=== PATIENT | female | born 1950 | race Caucasian/White ===

== ENCOUNTER 2018-11-04 08:09 | Emergency (ER) | payer MEDICARE, MEDICAID ==
--- NOTE | 2018-11-04 08:55 | RAD ---
Frontal and lateral views of the right tibia/fibula. Indication: fall yesterday with bruising Comparison: None. Impression: Soft tissue swelling throughout the right lower leg and most pronounced superomedially at the anterior aspect. No acute fracture of the tibia identified. Questionable cortical step-off versus spur lateral margin fibular head. Correlation with point tenderness versus cross-sectional imaging recommended. Electronically signed by: Jonah Negrete MD 11/04/2018 8:54 AM CDT
--- NOTE | 2018-11-04 08:57 | RAD ---
Study: Single Frontal Radiograph of the Chest. Indication:ams Comparison: None. Impression: Tracheostomy tube terminates approximately 10 cm above the sage. Left PICC line tip terminates at the distal SVC. Mild cardiomegaly. Patchy basilar opacities which could reflect pneumonia, atelectasis, or scarring. Tiny left pleural effusion suspected. No pneumothorax. No acute osseous abnormality. Electronically signed by: Jonah Negrete MD 11/04/2018 8:55 AM CDT
[2018-11-04] MEDS ORDERED: IPRATROPIUM/ALBUTEROL 3 ML VIAL NEB ONE (10:41)
[2018-11-04] MEDS ORDERED: AMOXICILLIN & POT CLAVULANATE 875 MG TAB GT ONE (10:41)
--- NOTE | 2018-11-04 11:19 | ED.PDOC ---
History of Present Illness - General Chief Complaint: Neuro Symptoms/Deficits Stated Complaint: decreased LOC Time Seen by Provider: 11/04/18 08:16 Source: patient Exam Limitations: no limitations - History of Present Illness Initial Comments: the patient is a 68-year-old female presenting to the emergency room secondary to staph that her long-term care ventilator facility having difficulty arousing her this morning. The patient does take numerous surgery the medications. No fevers. No respiratory symptoms. She has pain in her right lower extremity from a fall yesterday. She does have 2 large hematomas to the right lower extremity from the fall. She also has pain over the fibular head. No gross bony deformity otherwise. The patient is arousable to voice but she is sleepy. The patient has a slight lerma discoloration to her upper body that I'm told it is not a new issue. She has a PICC line to the left upper extremity. Timing/Duration: 4-6 hours Severity: mild Improving Factors: nothing Worsening Factors: nothing Associated Symptoms: denies symptoms Allergies/Adverse Reactions: Allergies Levofloxacin [From Levaquin] Allergy (Verified 11/04/18 08:51) Home Medications: Ambulatory Orders Acetaminophen [Acetaminophen ER] 650 mg PO Q4H PRN 11/04/18 Amoxicillin & Pot Clavulanate [Augmentin Tab] 875 mg PO BID #14 tab 11/04/18 Aspirin [Gamaliel Low Dose] 81 mg PO DAILY 11/04/18 Budesonide (Inhalation) [Budesonide] 0.5 mg IN BID 11/04/18 Buspirone HCl 30 mg PO BID 11/04/18 Diltiazem HCl 60 mg PO QID 11/04/18 Enoxaparin Sodium [Lovenox] 40 mg SUBCU QD 11/04/18 Famotidine 20 mg PO BID 11/04/18 Furosemide 40 mg PO DAILY 11/04/18 Guar Gum [Nutrisource Fiber] 1 barrett PEG BID 11/04/18 Haloperidol 2 mg PO TID 11/04/18 Ipratropium-Albuterol [Ipratropium [place]/Albut] 1 sharon IN Q2H PRN 11/04/18 Lorazepam [Ativan] 1 mg PO Q6H PRN 11/04/18 Ondansetron HCl [Zofran] 4 mg PO Q4H PRN 11/04/18 Polyethylene Glycol 3350 [Miralax] 17 gm PO DAILY 11/04/18 Potassium Chloride [Potassium Chloride ER] 40 meq PO DAILY 11/04/18 Tramadol HCl 50 mg PO Q8H PRN 11/04/18 Review of Systems - Review of Systems Constitutional: States: malaise EENTM: States: no symptoms reported Respiratory: States: no symptoms reported Cardiology: States: no symptoms reported Gastrointestinal/Abdominal: States: no symptoms reported Genitourinary: States: no symptoms reported Musculoskeletal: States: see HPI Skin: States: see HPI Neurological: States: see HPI Endocrine: States: no symptoms reported Hematologic/Lymphatic: States: no symptoms reported All other Systems: No Change from Baseline Past Medical History (General) - Patient Medical History Hx Stroke: No Hx of COPD: Yes Hx Cardiac Disorders: Yes - Atrial fib Hx Congestive Heart Failure: Yes Hx Hypertension: Yes Hx Diabetes: No - Vaccination History Hx Influenza Vaccination: - unknown Hx Pneumococcal Vaccination: - unknown - Activities of Daily Living Custodial/Assisted Living (if applicable):: [facility] Family Medical History - Family History Mother Family History: Unknown Living Status: Unknown Physical Exam - Physical Exam General Appearance: Alert, No apparent distress, Other - drowsy Eye Exam: bilateral normal Ears, Nose, Throat: hearing grossly normal, normal ENT inspection Neck: full range of motion, supple Respiratory: other - no respiratory distress. She is on a ventilator. She does have mild bibasilar rales. Mild scattered wheezes. Cardiovascular/Chest: normal peripheral pulses, regular rate, rhythm, no edema Peripheral Pulses: radial,right: 2+, radial,left: 2+, dorsalis pedis,right: 2+, dorsalis pedis,left: 2+ Gastrointestinal/Abdominal: non tender, soft, other - obese. G-tube is in place. Rectal Exam: deferred Extremity: normal range of motion, pedal edema - trace, other - 2 large hematomas to the right lower extremity. Tenderness to palpation over the fibular head. Neurologic: county auditor II-XII nml as tested - tracheostomy is in place., alert - he patient is sleepy but arousable to voice and appropriate., normal mood/affect - flat affect, oriented x 3, other - she does move all extremities but does have some significant weakness. Skin Exam: other - bruising to the right lower extremity. Hematology the right lower extremity. Slate lerma discoloration to her upper torso which is apparently not new. Comments: Vital Signs - 24 hr 11/04/18 11/04/18 11/04/18 08:41 09:00 09:03 Temperature 96.5 F L Pulse Rate Pulse Rate [ 83 72 Right Brachial] Respiratory 18 18 Rate Respiratory 18 Rate [Volume Control Data] Blood Pressure 106/65 [Right Arm] O2 Sat by Pulse 96 94 L Oximetry 11/04/18 11/04/18 11/04/18 09:31 10:00 11:07 Temperature Pulse Rate 81 Pulse Rate [ 75 77 Right Brachial] Respiratory 18 18 18 Rate Respiratory 18 Rate [Volume Control Data] Blood Pressure 110/79 127/89 [Right Arm] O2 Sat by Pulse 100 100 100 Oximetry Progress - Progress Progress: 11/04/18 11:24 the patient is a 68-year-old female presenting to the emergency room from a long-term care facility secondary to significant difficulty with arousing the patient this morning. She is still a little bit sleepy but is easily rousable to voice currently. The patient does take several sedating-type medications. I would encourage minimizing Ativan and if the drowsiness continues reducing Haldol dose to 1 mg 3 times daily. Additionally the patient does have some CO2 retention as evidenced by the ABG here. Her respiratory rate has been increased to 20 and her FiO2 has been decreased to 35%. The CO2 retention may be contributing to the drowsiness as well. The patient does have small infiltrates versus atelectasis on the chest x-ray. I'm uncertain if she has beginnings of a small pneumonia. White blood cell count is 11,000 with a slight left shift. I'm going to place the patient on Augmentin for 7 days. I would recommend leaving the PICC line in place in case the patient fails to respond or worsens over the coming days. Additionally the patient does appear to have a small crack in the fibular head on the right from the fall yesterday. She does need to use a wheelchair at least for the next few weeks to avoid weightbearing to allow this to start to heal. She does have significant bruising to the lower extremity which is consistent with the Lovenox use. I don't see any overt evidence of infection at the site at this time. The bruising is expected given the blood thinner. Hemoglobin and hematocrit are stable. No evidence of any other fracture on the x-ray of the tib-fib. there is a small amount of hematuria on the urinalysis. This is not surprising given the Lovenox use and the indwelling catheter. The patient will be allowed to go back to long-term care facility. She does need to see the facility doctor rodolfo rodriguez the weekend for reevaluation. - Results/Orders Results/Orders: chest x-ray shows patchy infiltrates versus atelectasis. Small pleural effusions. Laboratory Results - last 24 hr 11/04/18 11/04/18 11/04/18 08:30 08:30 08:30 WBC 11.4 H RBC 3.21 L Hgb 9.7 L Hct 30.4 L MCV 94.7 MCH 30.1 MCHC 31.8 L RDW 16.7 H Plt Count 202 MPV 9.0 Absolute Neuts (auto) 9.70 H Absolute Lymphs (auto) 0.50 L Absolute Monos (auto) 0.50 Absolute Eos (auto) 0.60 H Absolute Basos (auto) 0.10 Neutrophils % 85.2 H Lymphocytes % 4.1 L Monocytes % 4.5 Eosinophils % 5.2 H Basophils % 1.0 pCO2 pO2 HCO3 ABG pH ABG O2 Saturation ABG Base Excess ABG Deoxyhemoglobin Oxyhemoglobin % Carboxyhemoglobin % Methemoglobin % Sat Calc Total Hemoglobin Sodium 139 Potassium 4.1 Chloride 95 L Carbon Dioxide 31 Anion Gap 17.1 BUN 11 Creatinine 0.59 L BUN/Creatinine Ratio 18.6 Random Glucose 188 H Serum Osmolality 281.9 Lactic Acid 1.0 Calcium 9.5 Magnesium 2.0 Total Bilirubin 0.9 AST 49 H ALT 58 Alkaline Phosphatase 59 Creatine Kinase 57 CK-MB (CK-2) 2.2 Troponin I 0.03 Serum Total Protein 6.4 Albumin 3.5 Globulin 2.9 Albumin/Globulin Ratio 1.2 Urine Color Urine Appearance Urine pH Ur Specific [place] Urine Protein Urine Glucose (UA) Urine Ketones Urine Blood Urine Nitrite Urine Bilirubin Urine Urobilinogen Ur Leukocyte Esterase Urine RBC Urine WBC Ur Epithelial Cells Urine Bacteria Hyaline Casts 11/04/18 11/04/18 09:00 11:00 WBC RBC Hgb Hct MCV MCH MCHC RDW Plt Count MPV Absolute Neuts (auto) Absolute Lymphs (auto) Absolute Monos (auto) Absolute Eos (auto) Absolute Basos (auto) Neutrophils % Lymphocytes % Monocytes % Eosinophils % Basophils % pCO2 55 H pO2 118 H* HCO3 34.6 ABG pH 7.410 ABG O2 Saturation 99.8 H ABG Base Excess 9.1 ABG Deoxyhemoglobin 0.2 Oxyhemoglobin % 97.4 Carboxyhemoglobin % 0.1 L Methemoglobin % Sat 2.4 H Calc Total Hemoglobin 9.4 L Sodium Potassium Chloride Carbon Dioxide Anion Gap BUN Creatinine BUN/Creatinine Ratio Random Glucose Serum Osmolality Lactic Acid Calcium Magnesium Total Bilirubin AST ALT Alkaline Phosphatase Creatine Kinase CK-MB (CK-2) Troponin I Serum Total Protein Albumin Globulin Albumin/Globulin Ratio Urine Color Yellow Urine Appearance Sl cloudy Urine pH 7.0 Ur Specific [place] 1.020 Urine Protein Negative Urine Glucose (UA) Negative Urine Ketones Negative Urine Blood Large H Urine Nitrite Negative Urine Bilirubin Negative Urine Urobilinogen 0.2 Ur Leukocyte Esterase Negative Urine RBC 40-50 H Urine WBC 0-1 Ur Epithelial Cells 0-1 Urine Bacteria 0 Hyaline Casts 0-1 Departure - Departure Clinical Impression: Drowsiness, Hypoventilation Contusion, lower leg Qualifiers: Encounter type: initial encounter Laterality: right Qualified Code(s): S80.11XA - Contusion of right lower leg, initial encounter Fracture of head of fibula Qualifiers: Encounter type: initial encounter Fracture type: closed Laterality: right Qualified Code(s): S82.831A - Other fracture of upper and lower end of right fibula, initial encounter for closed fracture Hematuria Qualifiers: Hematuria type: unspecified type Qualified Code(s): R31.9 - Hematuria, unspecified Disposition: Discharge to SNF Condition: Fair Departure Forms: ED Discharge - Pt. Copy, Patient Portal Self Enrollment Diet: other Activity: other - use wheelchair Referrals: DAVID BROWN [Primary Care Provider] - 1-2 Weeks Prescriptions: Amoxicillin & Pot Clavulanate [Augmentin Tab] 875 mg PO BID #14 tab Home Medications: Ambulatory Orders Acetaminophen [Acetaminophen ER] 650 mg PO Q4H PRN 11/04/18 Amoxicillin & Pot Clavulanate [Augmentin Tab] 875 mg PO BID #14 tab 11/04/18 Aspirin [Gamaliel Low Dose] 81 mg PO DAILY 11/04/18 Budesonide (Inhalation) [Budesonide] 0.5 mg IN BID 11/04/18 Buspirone HCl 30 mg PO BID 11/04/18 Diltiazem HCl 60 mg PO QID 11/04/18 Enoxaparin Sodium [Lovenox] 40 mg SUBCU QD 11/04/18 Famotidine 20 mg PO BID 11/04/18 Furosemide 40 mg PO DAILY 11/04/18 Guar Gum [Nutrisource Fiber] 1 barrett PEG BID 11/04/18 Haloperidol 2 mg PO TID 11/04/18 Ipratropium-Albuterol [Ipratropium [place]/Albut] 1 sharon IN Q2H PRN 11/04/18 Lorazepam [Ativan] 1 mg PO Q6H PRN 11/04/18 Ondansetron HCl [Zofran] 4 mg PO Q4H PRN 11/04/18 Polyethylene Glycol 3350 [Miralax] 17 gm PO DAILY 11/04/18 Potassium Chloride [Potassium Chloride ER] 40 meq PO DAILY 11/04/18 Tramadol HCl 50 mg PO Q8H PRN 11/04/18 Additional Instructions: the patient is a 68-year-old female presenting to the emergency room from a long-term care facility secondary to significant difficulty with arousing the patient this morning. She is still a little bit sleepy but is easily rousable to voice currently. The patient does take several sedating-type medications. I would encourage minimizing Ativan and if the drowsiness continues reducing Haldol dose to 1 mg 3 times daily. Additionally the patient does have some CO2 retention as evidenced by the ABG here. Her respiratory rate has been increased to 20 and her FiO2 has been decreased to 35%. The CO2 retention may be contributing to the drowsiness as well. The patient does have small infiltrates versus atelectasis on the chest x-ray. I'm uncertain if she has beginnings of a small pneumonia. White blood cell count is 11,000 with a slight left shift. I'm going to place the patient on Augmentin for 7 days. I would recommend leaving the PICC line in place in case the patient fails to respond or worsens over the coming days. Additionally the patient does appear to have a small crack in the fibular head on the right from the fall yesterday. She does need to use a wheelchair at least for the next few weeks to avoid weightbearing to allow this to start to heal. She does have significant bruising to the lower extremity which is consistent with the Lovenox use. I don't see any overt evidence of infection at the site at this time. The bruising is expected given the blood thinner. Hemoglobin and hematocrit are stable. No evidence of any other fracture on the x-ray of the tib-fib. there is a small amount of hematuria on the urinalysis. This is not surprising given the Lovenox use and the indwelling catheter. I would also recommend scheduling the DuoNeb's at least twice daily on this patient along with prn nebs.The patient will be allowed to go back to long-term care facility. She does need to see the facility doctor before the weekend for reevaluation.
[2018-11-04 11:48] VITALS: BP 152/83; TEMP 97.6; O2SAT 97
== END 2018-11-04 11:48 ==
LOC: ER 08:09
DX: R40.0 Somnolence (principal); R06.89 Other abnormalities of breathing; S82.831A Other fracture of upper and lower end of right fibula, initial encounter for closed fracture; R31.9 Hematuria, unspecified; J44.9 Chronic obstructive pulmonary disease, unspecified; I48.91 Unspecified atrial fibrillation; I50.9 Heart failure, unspecified; I11.0 Hypertensive heart disease with heart failure; Z88.1 Allergy status to other antibiotic agents; Z79.82 Long term (current) use of aspirin; Z79.899 Other long term (current) drug therapy; W19.XXXA Unspecified fall, initial encounter; Y92.9 Unspecified place or not applicable
CPT/HCPCS: 36415; 36600; 71045; 73590; 80053; 81001; 82550; 82553; 82803; 82805; 83605; 83735; 84484; 85025; 94002; 94640; J7620

== ENCOUNTER 2018-11-11 06:34 | Emergency (ER) | payer MEDICARE, MEDICAID ==
--- NOTE | 2018-11-11 07:04 | ED.PDOC ---
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 FELL OUT OF BED PER REPORT GIVEN BY THE STAFF AT [facility] THEY HEARD THE ALARM GO OFF SHE WAS DISCONNECTED FROM THE VENT AND WAS ATTENDED TO IN A COUPLE OF MIN CPR WAS PERFORMED SHE HAD NO PULSE AND WHEN THE EMS ARRIVED SHE HAS HAS RETURN OF CARDIAC ACTIVITY WITH NORMAL VITAL SIGNS HERE WE FIND HER COLOR JOJO ABOVE THE NECK IS GRAYISH AND THOUGHT NOT OPENING HER EYES SHE IS ABLE TO MOVE HER UPPER AND LOWER EXTREMITIES SHE HAS A TRACHEOSTOMY FEEDING GASTROSTOMY AND A VICK CATHETER SHE HAS A HEMATOMA ON THE RIGHT PROXIMAL ANTERIOR LEG AND BILATERAL LOWER EXTREMITY EDEMA HER SKIN ORAL MUCOSA ARE DRY PUPILS MID SIZE AND REACTIVE TO LIGHT - History of Present Illness Timing/Duration: momentarily Severity: moderate Improving Factors: nothing Worsening Factors: nothing Allergies/Adverse Reactions: Allergies Levofloxacin [From Levaquin] Allergy (Verified 11/04/18 08:51) Home Medications: Ambulatory Orders Acetaminophen [Acetaminophen ER] 650 mg PO Q4H PRN 11/04/18 Amoxicillin & Pot Clavulanate [Augmentin Tab] 875 mg PO BID #14 tab 11/04/18 Aspirin [Gamaliel Low Dose] 81 mg PO DAILY 11/04/18 Budesonide (Inhalation) [Budesonide] 0.5 mg IN BID 11/04/18 Buspirone HCl 30 mg PO BID 11/04/18 Diltiazem HCl 60 mg PO QID 11/04/18 Enoxaparin Sodium [Lovenox] 40 mg SUBCU QD 11/04/18 Famotidine 20 mg PO BID 11/04/18 Furosemide 40 mg PO DAILY 11/04/18 Guar Gum [Nutrisource Fiber] 1 barrett PEG BID 11/04/18 Haloperidol 2 mg PO TID 11/04/18 Ipratropium-Albuterol [Ipratropium [place]/Albut] 1 sharon IN Q2H PRN 11/04/18 Lorazepam [Ativan] 1 mg PO Q6H PRN 11/04/18 Ondansetron HCl [Zofran] 4 mg PO Q4H PRN 11/04/18 Polyethylene Glycol 3350 [Miralax] 17 gm PO DAILY 11/04/18 Potassium Chloride [Potassium Chloride ER] 40 meq PO DAILY 11/04/18 Tramadol HCl 50 mg PO Q8H PRN 11/04/18 Review of Systems - Review of Systems Unable to Obtain Due To: intubated - CHRONIC VENT DEPENDANT Past Medical History (General) - Patient Medical History Hx Stroke: No Hx of COPD: Yes Hx Cardiac Disorders: Yes - Atrial fib Hx Congestive Heart Failure: Yes Hx Hypertension: Yes Hx Diabetes: No - Vaccination History Hx Influenza Vaccination: - unknown Hx Pneumococcal Vaccination: - unknown Family Medical History - Family History Mother Family History: Unknown Living Status: Unknown Physical Exam - Physical Exam General Appearance: Ill Appearing, Other - CHRONIC VENT PATIENT WHO IS NOT RESPONDING TO VERBAL STIMULI Ears, Nose, Throat: normal pharynx Neck: supple, normal inspection Respiratory: normal breath sounds Cardiovascular/Chest: regular rate, rhythm, no edema, no gallop Gastrointestinal/Abdominal: non tender, no organomegaly, no pulsatile mass Back Exam: normal inspection Extremity: swelling, other - HEMATOMA PROXIMAL ANTERIOR RIGHT LEG JUST BELOW KNEE Neurologic: disoriented x 3 Skin Exam: warm/dry Lymphatic: no adenopathy Progress - Results/Orders Results/Orders: Laboratory Tests 11/11/18 11/11/18 11/11/18 07:00 07:00 07:14 WBC 13.0 H RBC 3.19 L Hgb 9.7 L Hct 30.4 L MCV 95.3 MCH 30.3 MCHC 31.8 L RDW 17.3 H Plt Count 450 H MPV 8.6 Absolute Neuts (auto) Not Reportable Absolute Lymphs (auto) Not Reportable Absolute Monos (auto) Not Reportable Absolute Eos (auto) Not Reportable Neutrophils % Not Reportable Neutrophils % (Manual) 87.0 H Lymphocytes % Not Reportable Lymphocytes % (Manual) 6.0 Monocytes % Not Reportable Monocytes % (Manual) 5.0 Eosinophils % Not Reportable Basophils % Not Reportable Band Neutrophils 2.0 Platelet Estimate Increased Normal RBC Morphology Normal rbc morph pCO2 95 H* pO2 68 L HCO3 37.6 ABG pH 7.220 L* ABG O2 Saturation 90.0 L ABG Base Excess 8.2 ABG Deoxyhemoglobin 9.9 H Oxyhemoglobin % 88.4 L Carboxyhemoglobin % 1.1 Methemoglobin % Sat 0.6 Calc Total Hemoglobin 8.9 L Sodium 138 Potassium 5.4 H Chloride 92 L Carbon Dioxide 35 H Anion Gap 16.4 BUN 13 Creatinine 0.50 L BUN/Creatinine Ratio 26.0 H Random Glucose 155 H Serum Osmolality 278.9 Calcium 9.5 Total Bilirubin 0.4 AST 31 ALT 35 Alkaline Phosphatase 70 Serum Total Protein 7.5 Albumin 3.5 Globulin 4.0 H Albumin/Globulin Ratio 0.9 L 0900 HOURS PATIENT CONDITION WAS DISCUSSED WITH HER MEDICAL POWER OF TRAFFIC OR SYSTEM DISPATCHER HER FRIEND IN [place] WHO WANTED FULL CODE PATIENT HAS THE FOLLOWING PROBLEMS COPD GASTROSTOMY PAROXYSMAL ATRIAL FIBRILLATION HYPERTENSION I DISCUSSED WITH DR Alicia VELASQUEZ AT [facility] WHO ACCEPTED THE PATIENT FOR FURTHER CARE - EKG/XRAY/CT EKG: Sinus Comments: NSR RATE 86 / MIN AXIS NORMAL NO INJURY OR INFARCTION Departure - Departure Clinical Impression: Respiratory failure with hypercapnia Time of Disposition: 09:15 Disposition: Transfer to Hospital Condition: Fair Referrals: DAVID BROWN [Primary Care Provider] - 1-2 Weeks Home Medications: Ambulatory Orders Acetaminophen [Acetaminophen ER] 650 mg PO Q4H PRN 11/04/18 Amoxicillin & Pot Clavulanate [Augmentin Tab] 875 mg PO BID #14 tab 11/04/18 Aspirin [Gamaliel Low Dose] 81 mg PO DAILY 11/04/18 Budesonide (Inhalation) [Budesonide] 0.5 mg IN BID 11/04/18 Buspirone HCl 30 mg PO BID 11/04/18 Diltiazem HCl 60 mg PO QID 11/04/18 Enoxaparin Sodium [Lovenox] 40 mg SUBCU QD 11/04/18 Famotidine 20 mg PO BID 11/04/18 Furosemide 40 mg PO DAILY 11/04/18 Guar Gum [Nutrisource Fiber] 1 barrett PEG BID 11/04/18 Haloperidol 2 mg PO TID 11/04/18 Ipratropium-Albuterol [Ipratropium [place]/Albut] 1 sharon IN Q2H PRN 11/04/18 Lorazepam [Ativan] 1 mg PO Q6H PRN 11/04/18 Ondansetron HCl [Zofran] 4 mg PO Q4H PRN 11/04/18 Polyethylene Glycol 3350 [Miralax] 17 gm PO DAILY 11/04/18 Potassium Chloride [Potassium Chloride ER] 40 meq PO DAILY 11/04/18 Tramadol HCl 50 mg PO Q8H PRN 11/04/18 Transfer to Outside Facility - Transfer Information Accepting Provider:: DR VELASQUEZ AT [facility] ED Accepting Facility: [facility] Reason for Transfer: specialized care not available
[2018-11-11] MEDS ORDERED: SODIUM CHLORIDE 0.9% 1000ML 1,000 ML IVS ONE (07:09)
--- NOTE | 2018-11-11 07:36 | RAD ---
CHEST, ONE VIEW XR 11/11/2018. CLINICAL HISTORY: COPD. COMPARISON: Chest 11/04/2018. TECHNIQUE: AP Chest. FINDINGS: Stable tracheostomy. Left subclavian PICC line has been withdrawn. Lungs are hyperinflated. The cardiac size is upper normal. Mild aortic atherosclerosis. Normal pulmonary vascularity. No edema or pneumothorax. Intact bones. Normal soft tissues. IMPRESSION: 1. Hyperinflation. No acute chest disease. Electronically signed by: Snaia Okeefe DO 11/11/2018 7:34 AM CDT
[2018-11-11 07:55] VITALS: O2SAT 100
[2018-11-11 10:21] VITALS: BP 112/78; TEMP 95.8
== END 2018-11-11 10:00 | disposition short-term general hospital (02) ==
LOC: ER 06:34
DX: J96.92 Respiratory failure, unspecified with hypercapnia (principal); S70.11XA Contusion of right thigh, initial encounter; I11.0 Hypertensive heart disease with heart failure; I50.9 Heart failure, unspecified; I48.91 Unspecified atrial fibrillation; J44.9 Chronic obstructive pulmonary disease, unspecified; W06.XXXA Fall from bed, initial encounter; Y92.129 Unspecified place in nursing home as the place of occurrence of the external cause; Z99.11 Dependence on respirator [ventilator] status; Z93.1 Gastrostomy status; Z79.899 Other long term (current) drug therapy; Z79.82 Long term (current) use of aspirin; Z88.1 Allergy status to other antibiotic agents
CPT/HCPCS: 36415; 36600; 71045; 80053; 82803; 82805; 85025; 93005; 94002; 94770; J2060; J7030

== ENCOUNTER → 2018-12-06 04:07 | Emergency (ER) | payer MEDICARE, MEDICAID ==
[~2018-12-06 04:07] MED LIST: EPINEPHrine INJ 0.1 MG/ML 10 ML SYG ONE; SODIUM BICARBONATE VIAL 50 MEQ/50 ML VIAL ONE
--- NOTE | 2018-12-06 04:52 | ED.PDOC ---
History of Present Illness - General Chief Complaint: Cardiac Respiratory Arrest Stated Complaint: CPR in progress, cardiac arrest Time Seen by Provider: 12/06/18 04:08 Source: RN notes reviewed, Vital Signs reviewed, EMS Exam Limitations: clinical condition - History of Present Illness Initial Comments: Pt was a 68 y/o WF who presents from the vent unit in cardiopulmonary arrest. Unknown down time prior to EMS arrival. Pt was pulseless x 20 minutes before EMS arrival. They provided 2 rounds of epi and transported the patient to the hospital. They noted that patient was in asystole during their tx of this pt. Here pt underwent another 10 minutes of cpr. ACLS protocol was followed. See MAR for specific doses and timing Pt was in asystol during cpr. Pt pronounced at 0417 hours. 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 Activities at Onset: other - unknown Prior Chest Pain/Cardiac Workup: other - unknown Improving Factors: other - unknown Worsening Factors: other - unknown Nitro Today/Relief: no nitro taken today Aspirin Treatment Today: unknown Associated Symptoms: other - unable to obtain this information Allergies/Adverse Reactions: Allergies Levofloxacin [From Levaquin] Allergy (Verified 11/04/18 08:51) Home Medications: Ambulatory Orders Acetaminophen [Acetaminophen ER] 650 mg PO Q4H PRN 11/04/18 Amoxicillin & Pot Clavulanate [Augmentin Tab] 875 mg PO BID #14 tab 11/04/18 Aspirin [Gamaliel Low Dose] 81 mg PO DAILY 11/04/18 Budesonide (Inhalation) [Budesonide] 0.5 mg IN BID 11/04/18 Buspirone HCl 30 mg PO BID 11/04/18 Diltiazem HCl 60 mg PO QID 11/04/18 Enoxaparin Sodium [Lovenox] 40 mg SUBCU QD 11/04/18 Famotidine 20 mg PO BID 11/04/18 Furosemide 40 mg PO DAILY 11/04/18 Guar Gum [Nutrisource Fiber] 1 barrett PEG BID 11/04/18 Haloperidol 2 mg PO TID 11/04/18 Ipratropium-Albuterol [Ipratropium [place]/Albut] 1 sharon IN Q2H PRN 11/04/18 Lorazepam [Ativan] 1 mg PO Q6H PRN 11/04/18 Ondansetron HCl [Zofran] 4 mg PO Q4H PRN 11/04/18 Polyethylene Glycol 3350 [Miralax] 17 gm PO DAILY 11/04/18 Potassium Chloride [Potassium Chloride ER] 40 meq PO DAILY 11/04/18 Tramadol HCl 50 mg PO Q8H PRN 11/04/18 Review of Systems - Review of Systems Unable to Obtain Due To: condition, other - tached Past Medical History (General) - Patient Medical History Hx Stroke: No Hx of COPD: Yes Hx Cardiac Disorders: Yes - Atrial fib Hx Congestive Heart Failure: Yes Hx Hypertension: Yes Hx Diabetes: No - Vaccination History Hx Influenza Vaccination: - unknown Hx Pneumococcal Vaccination: - unknown Family Medical History - Family History Mother Family History: Unknown Living Status: Unknown Physical Exam - Physical Exam General Appearance: Other - pt was blue in color and pale. Pt undergoing active cpr on arrival. Eyes, Ears, Nose, Throat Exam: other - pupils fixed and dilated. Neck: other - trach in place Respiratory: other - no respiratory effort. Coarse BS with BVM Cardiovascular/Chest: other - aystole with no hear sounds appreciated on ascultations Gastrointestinal/Abdominal: distended Rectal Exam: other - brown stool Extremity: pedal edema, swelling Neurologic: other - GCS=3, intubated. Skin Exam: cyanosis, pallor Progress - Progress Progress: 12/06/18 04:58 Pt underwent CPR following ACLS protocols w/o ROSC. Pt remained in asystole and was prounounced at 0417 hrs. Nura Nye M.D. #[id number] Departure - Departure Clinical Impression: Cardiac arrest, Respiratory arrest Disposition: Referrals: DAVID BROWN [Primary Care Provider] - 1-2 Weeks Home Medications: Ambulatory Orders Acetaminophen [Acetaminophen ER] 650 mg PO Q4H PRN 11/04/18 Amoxicillin & Pot Clavulanate [Augmentin Tab] 875 mg PO BID #14 tab 11/04/18 Aspirin [Gamaliel Low Dose] 81 mg PO DAILY 11/04/18 Budesonide (Inhalation) [Budesonide] 0.5 mg IN BID 11/04/18 Buspirone HCl 30 mg PO BID 11/04/18 Diltiazem HCl 60 mg PO QID 11/04/18 Enoxaparin Sodium [Lovenox] 40 mg SUBCU QD 11/04/18 Famotidine 20 mg PO BID 11/04/18 Furosemide 40 mg PO DAILY 11/04/18 Guar Gum [Nutrisource Fiber] 1 barrett PEG BID 11/04/18 Haloperidol 2 mg PO TID 11/04/18 Ipratropium-Albuterol [Ipratropium [place]/Albut] 1 sharon IN Q2H PRN 11/04/18 Lorazepam [Ativan] 1 mg PO Q6H PRN 11/04/18 Ondansetron HCl [Zofran] 4 mg PO Q4H PRN 11/04/18 Polyethylene Glycol 3350 [Miralax] 17 gm PO DAILY 11/04/18 Potassium Chloride [Potassium Chloride ER] 40 meq PO DAILY 11/04/18 Tramadol HCl 50 mg PO Q8H PRN 11/04/18 Comments: I spoke with Jessica ROGERS, she is requesting an autopsy. REYNA notified by nursing.
[2018-12-06 05:18] VITALS: BP 0/0
== END | disposition expired ==
LOC: ER 04:07
DX: I46.9 Cardiac arrest, cause unspecified (principal); R60.0 Localized edema; I48.91 Unspecified atrial fibrillation; J44.9 Chronic obstructive pulmonary disease, unspecified; I50.9 Heart failure, unspecified; I11.0 Hypertensive heart disease with heart failure; Z79.899 Other long term (current) drug therapy; Z79.82 Long term (current) use of aspirin; Z88.1 Allergy status to other antibiotic agents